=== PATIENT | male | born 1965 | race American Indian/Alaskan Native ===

== ENCOUNTER 2018-07-28 17:06 | Emergency (ER) | payer OTHER ==
[2018-07-28 17:16] VITALS: RESP 16; O2SAT 100
[2018-07-28] MEDS ORDERED: Lidocaine/Epi 1% 1:100000 20 ML IJ ONE (17:45)
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
[2018-07-28] MEDS ORDERED: Lidocaine 1% w Epi 1:100,000 Inj ONE (18:16)
[2018-07-28] MEDS ORDERED: Tdap Vaccine 0.5 ml Vial (10-64 yrs) IM ONE (18:18)
--- NOTE | 2018-07-28 18:25 | CT ---
Date of service: 07/28/2018 PROCEDURE: CT HEAD WITHOUT CONTRAST. HISTORY: r/o ICH COMPARISON: None available. TECHNIQUE: Axial computed tomography images were obtained through the head/brain without intravenous contrast. Radiation dose: Total exam DLP = 801.12 mGy-cm. This CT exam was performed using one or more of the following dose reduction techniques: Automated exposure control, adjustment of the mA and/or kV according to patient size, and/or use of iterative reconstruction technique. FINDINGS: HEMORRHAGE: No intracranial hemorrhage. BRAIN: No mass effect or edema. The pickens-white matter differentiation appears intact. Please note that MRI with diffusion imaging is more sensitive in the detection of acute ischemic event. VENTRICLES: No hydrocephalus. CALVARIUM: Unremarkable. PARANASAL SINUSES: Unremarkable as visualized. No significant inflammatory changes. MASTOID AIR CELLS: Unremarkable as visualized. No inflammatory changes. OTHER FINDINGS: None. IMPRESSION: No acute intracranial pathology identified.
[2018-07-28] MEDS: Tdap Vaccine 0.5 ml Vial (10-64 yrs) IM ONE (18:38)
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
[2018-07-28 21:11] VITALS: BP 136/86; PULSE 80; TEMP 98.2
== END 2018-07-28 21:10 | disposition home or self-care (01) ==
LOC: H.ER 17:06
DX: S01.01XA Laceration without foreign body of scalp, initial encounter (principal); S09.90XA Unspecified injury of head, initial encounter; Y04.0XXA Assault by unarmed brawl or fight, initial encounter; Y92.89 Other specified places as the place of occurrence of the external cause; Z87.891 Personal history of nicotine dependence; Z88.0 Allergy status to penicillin; Z88.1 Allergy status to other antibiotic agents; Z88.2 Allergy status to sulfonamides